=== PATIENT | male | born 1945 | race Caucasian/White ===

== ENCOUNTER → 2023-10-31 06:19 | Day surgery (SDC) | payer MEDICARE, OTHER, SELFPAY | LOC: GI 06:19 | PROVIDERS: ATTENDING PHYSICIAN Internal Medicine; FAMILY PHYSICIAN Family Medicine | DX: Z12.11 Encounter for screening for malignant neoplasm of colon (principal); K57.30 Diverticulosis of large intestine without perforation or abscess without bleeding; D12.5 Benign neoplasm of sigmoid colon; Z86.010 Personal history of colon polyps | CPT/HCPCS: 45380; 88305 ==

== ENCOUNTER → 2023-12-08 06:14 | Day surgery (SDC) | payer MEDICARE, OTHER, SELFPAY | LOC: GI 06:14 | PROVIDERS: ATTENDING PHYSICIAN Internal Medicine | DX: K44.9 Diaphragmatic hernia without obstruction or gangrene (principal); K22.89 Other specified disease of esophagus; K22.70 Barrett's esophagus without dysplasia | CPT/HCPCS: 43239; 88305; 88342 ==